=== PATIENT | male | born 1985 | race Caucasian/White ===

== ENCOUNTER 2017-09-28 17:57 | Emergency (ER) | payer OTHER ==
[2017-09-28] MEDS ORDERED: LIDOCAINE 1% INJ-PF (10 MG/ML) 30 ML SDV INJ ONE (18:25)
[2017-09-28] MEDS ORDERED: DIPH/PERTUSS(ACELL)/TETANUS VAC/PF 0.5 ML SYR (>=10YO) IM ONE (18:25)
--- NOTE | 2017-09-28 18:30 | ER Document Report ---
HPI - HPI Patient complains to provider of: left elbow laceration Onset: Just prior to arrival Onset/Duration: Sudden Severity: Mild Pain Level: 1 Context: Patient presents to the emergency department from the [facility] for complaints of left elbow laceration. Patient is not sure what he cut his elbow on. Keeps asking if he was cut with something. Denies falling. Does not know if his tetanus is up-to-date. Denies pain to the elbow. Associated Symptoms: None Exacerbated by: Denies Relieved by: Denies Similar symptoms previously: No Recently seen / treated by doctor: No Past Medical History - General Information source: Patient - Social History Smoking Status: Never Smoker Chew tobacco use (# tins/day): No Frequency of alcohol use: None Drug Abuse: None Lives with: Other - [facility] Family History: Reviewed & Not Pertinent Patient has suicidal ideation: No Patient has homicidal ideation: No - Medical History Medical History: Negative Renal/ Medical History: Denies: Hx Peritoneal Dialysis Psychiatric Medical History: Reports: Hx Anxiety - panic attacks Past Surgical History: Reports: Hx Orthopedic Surgery - Left wrist surgery following a snowboarding injury. Vertical Provider Document - CONSTITUTIONAL Agree With Documented VS: Yes Exam Limitations: No Limitations General Appearance: WD/WN, No Apparent Distress - INFECTION CONTROL TRAVEL OUTSIDE OF THE [place] IN LAST 30 DAYS: No - HEENT HEENT: Atraumatic, Normocephalic - NECK Neck: Supple - RESPIRATORY Respiratory: No Respiratory Distress O2 Sat by Pulse Oximetry: 98 - CARDIOVASCULAR Cardiovascular: Regular Rate - MUSCULOSKELETAL/EXTREMETIES Musculoskeletal/Extremeties: Non-Tender - left elbow with small laceration no active bleeding, denies pain no obvious deformity no swelling - NEURO Level of Consciousness: Awake, Alert, Appropriate Motor/Sensory: No Motor Deficit - DERM Integumentary: Warm, Dry, Laceration Adult Front & Back Diagram: 1 - 2 cm laceration, no active bleeding Course - Re-evaluation Re-evalutation: 09/28/17 19:18 retained fb noted on xray, will clean well, pt still reports he is not sure how he cut his elbow. 09/28/17 19:58 Area cleaned well by PCP Marlin removed several asphalt type particles, 4 sutures placed patient tolerated procedure well. Patient and agricultural extension officer deputy instructed on signs and symptoms of infection. Instructed to return to the emergency department in 10 days for suture removal or earlier for any signs of infection. They both verbalized understanding. - Vital Signs Vital signs: Temp Pulse Resp BP Pulse Ox 98.8 F 77 20 134/87 H 98 09/28/17 18:04 09/28/17 18:04 09/28/17 18:04 09/28/17 18:04 09/28/17 18:04 - Diagnostic Test Radiology reviewed: Image reviewed, Reports reviewed - Diagnostic report text EXAM DESCRIPTION: ELBOW LEFT OVER 2 VIEWS COMPLETED DATE/TIME: 09/28/2017 6:58 pm REASON FOR STUDY: fall, laceration , ? fb COMPARISON: None. NUMBER OF VIEWS: Four views. TECHNIQUE: AP, lateral, and both oblique radiographic images acquired of the left elbow. LIMITATIONS: None. FINDINGS: MINERALIZATION: Normal. BONES: No acute fracture or dislocation. No worrisome bone lesions. JOINT: No effusion. SOFT TISSUES: A soft tissue defect is seen posterior to the proximal ulna, noting punctate hyperdensities within this defect. OTHER: No other significant finding. IMPRESSION: Soft tissue injury with punctate retained radiopaque foreign bodies. No underlying osseous injury. Procedures - Laceration/Wound Repair Left Elbow Wound length (cm): 2 Wound's Depth, Shape: Superficial, Linear Laceration pre-procedure: Sterile PPE donned Anesthetic type: 1% Lidocaine Volume Anesthetic (mLs): 2 Wound explored: Foreign body removed Irrigated w/ Saline (mLs): 500 Wound Repaired With: Sutures Suture Size/Type: 5:0, Nylon Number of Sutures: 4 Layer Closure?: No Discharge - Discharge Clinical Impression: Laceration of left elbow Condition: Stable Disposition: OTHER Instructions: Laceration Care ([facility]), Tetanus Immunization Given ([facility]) Additional Instructions: *You have been treated for a laceration *You have received a tetanus *Monitor the site for signs of infection such as pain, redness, swelling, warmth *Keep the area clean *Follow up here for suture removal in 10days *Return to ED for signs of infection, worsening condition, changes, needs Monitor your blood pressure. Your blood pressure was elevated today. This may be because you were anxious, in pain or because you need medication. It is important to follow up with your primary care provider for full evaluation. Forms: Elevated Blood Pressure
--- NOTE | 2017-09-28 19:11 | RADIOLOGY REPORT (SQ) ---
EXAM DESCRIPTION: ELBOW LEFT OVER 2 VIEWS COMPLETED DATE/TIME: 09/28/2017 6:58 pm REASON FOR STUDY: fall, laceration , ? fb COMPARISON: None. NUMBER OF VIEWS: Four views. TECHNIQUE: AP, lateral, and both oblique radiographic images acquired of the left elbow. LIMITATIONS: None. FINDINGS: MINERALIZATION: Normal. BONES: No acute fracture or dislocation. No worrisome bone lesions. JOINT: No effusion. SOFT TISSUES: A soft tissue defect is seen posterior to the proximal ulna, noting punctate hyperdensi ties within this defect. OTHER: No other significant finding. IMPRESSION: Soft tissue injury with punctate retained radiopaque foreign bodies. No underlying osse ous injury. TECHNICAL DOCUMENTATION: JOB ID: [id number] [employer]- All Rights Reserved
[2017-09-28 20:09] VITALS: BP 112/66
== END 2017-09-28 20:09 | disposition other institution (70) ==
LOC: ER 17:57
DX: S51.022A Laceration with foreign body of left elbow, initial encounter (principal); X58.XXXA Exposure to other specified factors, initial encounter
CPT/HCPCS: 99283; 90471; 73080; 90715; 12001; J3490